=== PATIENT | male | born 1985 | race Two or more races ===

== ENCOUNTER 2017-06-04 18:27 | Emergency (ER) | payer SELFPAY | END 2017-06-04 20:16 | disposition home or self-care (01) | LOC: EDBD 18:27 → D.ER 18:27 | DX: F43.22 Adjustment disorder with anxiety (principal); X78.9XXA Intentional self-harm by unspecified sharp object, initial encounter; Y93.89 Activity, other specified; Y92.029 Unspecified place in mobile home as the place of occurrence of the external cause; Z86.59 Personal history of other mental and behavioral disorders; F17.200 Nicotine dependence, unspecified, uncomplicated ==